=== PATIENT | female | born 2000 | race Hispanic/Latino ===

== ENCOUNTER 2024-03-19 23:57 | Emergency (ER) | payer SELFPAY ==
[2024-03-20 00:54] LABS: Absolute Basophils 0.1 K/uL (0-0.5); Absolute Eosinophils 0.2 K/uL (0-0.5); Absolute Lymphocytes (CBC) 4.5 K/uL (0.7-4.9); Absolute Monocytes 0.5 K/uL (0.1-1.3); Absolute Neutrophil 7.7 K/uL (1.8-8.0); Eosinophils % 1.3 % (0-4.4); Hematocrit 42.7 % (36.0-45.0); Hemoglobin 13.8 g/dL (12.0-15.0); Lymphocytes % 34.7 % (15.3-44.8); MCH 25.6 pg (27.0-35.0); MCHC 32.4 g/dL (32.0-36.0); MCV 79.1 fL (80-100); MPV 8.9 fL (7.6-11.3); Nucleated Red Blood Cells % 0.1 % (0-0); Platelets 477 thou/uL (152-406); RBC Red Blood Cell Count 5.41 M/uL (3.86-4.86); Red Cell Distribution Width 15.4 % (12.1-15.2)
[2024-03-20 00:59] LABS: Specific Gravity > 1.030 (1.005-1.030); Sqamous Epithelial <5 /HPF (None Seen); Urine Bacteria None Seen /HPF (<20); Urine Bilirubin NEGATIVE (Negative); Urine Blood 3+ (OVER) (Negative); Urine Clarity Clear (Clear); Urine Color Light-Yellow (Yellow); Urine Culture Reflex Order NOT NEEDED; Urine Glucose 4+ (Over) (Negative); Urine Ketones NEGATIVE (Negative); Urine Microscopic Reflex YN ORDER UMIC; Urine Mucus Slight /HPF (None Seen); Urine Nitrite NEGATIVE (Negative); Urine Protein TRACE (Negative); Urine RBC >50 /HPF (None Seen); Urine Urobilinogen Normal (Normal); Urine WBC <5 /HPF (<5); Urine pH 5.5 (5.0-7.0)
[2024-03-20 01:00] LABS: Specific Gravity > 1.030 (1.005-1.030)
[2024-03-20 01:25] LABS: Anion Gap 11.6 mEq/L (5.0-15.0); Potassium 3.6 mEq/L (3.5-5.1)
--- NOTE | 2024-03-20 02:47 | EDPHYS ---
Physician Documentation [facility] Name: Zeenat Foster Age: 24 yrs Sex: Female : 2000 Arrival Date: 03/19/2024 Time: 23:57 Bed 17 Private MD: ED Physician Tomas Anne HPI: 03/20 00:23 This 24 yrs old Female presents to ER via Ambulatory with complaints of rn Vaginal Bleeding, + Preg <12wks. 00:23 The patient presents to the emergency department with vaginal bleeding, that is light, rn with clots. The estimated gestational age is 8 weeks. course: care: none, Leakage of Fluid: none appreciated, Ultrasound: the patient had an ultrasound. Previous pregnancies: the patient has never been . The patient has been recently seen by a physician:. Patient reports approximately 7 to 8 weeks , had an ultrasound at about 6 weeks of that showed intrauterine but smaller at the time. Denies trauma. No urinary symptoms. No fever. Reports vaginal bleeding with clots yesterday, light today. Has not been using pads, just panty liner. No lightheadedness. No chest pain. No syncope. Does not take blood thinners. No known hematologic problems.. 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 - Infectious Disease History:: Denies. - Social history:: Smoking status: Patient denies any tobacco usage or history of. Patient/guardian denies using alcohol, street drugs. - Family history:: not pertinent. - Hospitalizations: : No recent hospitalization is reported. ROS: 00:23 Constitutional: Negative for fever, chills, and weight loss, Cardiovascular: Negative rn for chest pain, palpitations, and edema, Respiratory: Negative for shortness of breath, cough, wheezing, and pleuritic chest pain, Abdomen/GI: Positive for abdominal cramping : Positive for vaginal bleeding MS/Extremity: Negative for injury and deformity, Exam: 00:23 Constitutional: This is a well developed, well nourished patient who is awake, alert, rn and in no acute distress. Cardiovascular: Regular rate and rhythm. No pulse deficits. Respiratory: No increased work of breathing, no retractions or nasal flaring. Abdomen/GI: Soft, nontender, no peritoneal signs MS/ Extremity: Pulses equal, no cyanosis. Neuro: Awake and alert, GCS 15 Vital Signs: 00:10 BP 148 / 96; Pulse 88; Resp 17 S; Temp 98.4(O); Pulse Ox 100% on R/A; Weight 90.72 kg lg3 (R); Height 5 ft. 7 in. (R); 03:02 BP 127 / 74; Pulse 82; Resp 16; Pulse Ox 96% on R/A; jb4 00:10 Body Mass Index 31.32 (90.72 kg, 170.18 cm) lg3 MDM: 00:01 Patient medically screened. rn 02:45 Differential diagnosis: threatened Ab, ectopic . Data reviewed: vital signs, rn nurses notes, lab test result(s), radiologic studies, ultrasound, and as a result, I will discharge patient. Counseling: I had a detailed discussion with the patient and/or guardian regarding the historical points, exam findings, and any diagnostic results supporting the discharge/admit diagnosis, lab results, radiology results, the need for outpatient follow up, to return to the emergency department if symptoms worsen or persist or if there are any questions or concerns that arise at home. Special discussion: I discussed with the patient/guardian in detail that at this point there is no indication for admission to the hospital. It is understood, however, that if the symptoms persist or worsen the patient needs to return immediately for re-evaluation. ED course: Ultrasound does not show cardiac activity. Low-lying gestational sac. This could and is miscarriage and conveyed this information to the patient. Has ultrasound appointment on Thursday and OB appointment on Thursday, will give printout of all results so can be repeated accordingly. Return precautions given and understood. Stable vital signs.. 03/20 00:20 Order name: Abo/rh Typing; Complete Time: rn 03/20 00:20 Order name: Basic Metabolic Panel; Complete Time: rn 03/20 00:20 Order name: CBC with Diff; Complete Time: rn 03/20 00:20 Order name: Test, Urine; Complete Time: : rn 03/20 00:20 Order name: Quantitative Hcg; Complete Time: rn 03/20 00:20 Order name: Urinalysis w/ reflexes; Complete Time: : rn 03/20 00:20 Order name: US Transvaginal Ob rn 03/20 00:20 Order name: IV Saline Lock; Complete Time: : rn 03/20 00:20 Order name: Labs collected and sent; Complete Time: rn 03/20 00:20 Order name: NPO; Complete Time: : rn Administered Medications: No medications were administered Disposition Summary: 03/20/24 02:47 Discharge Ordered Notes: Location: Home rn Problem: new rn Symptoms: have improved rn Condition: Stable rn Diagnosis - Threatened rn - Abnormal uterine and vaginal bleeding, unspecified rn Followup: rn - With: Private Physician - When: 2 - 3 days - Reason: Recheck today's complaints, Re-evaluation by your physician Discharge Instructions: - Discharge Summary Sheet rn - Threatened Miscarriage rn - Vaginal Bleeding During , First Trimester rn Forms: - Medication Reconciliation Form rn - Antibiotic harness mender - Prescription Opioid Use rn - Patient Portal Instructions rn - Leadership Thank You Letter rn Signatures: Dispatcher [employer] Tomas Schmid MD MD rn Able, Lacie, RN RN lg3
--- NOTE | 2024-03-20 02:47 | ER ---
Nurse's Notes [facility] Name: Zeenat Foster Age: 24 yrs Sex: Female : 2000 Arrival Date: 03/19/2024 Time: 23:57 Bed 17 Private MD: Diagnosis: Threatened ;Abnormal uterine and vaginal bleeding, unspecified Presentation: 03/20 00:10 Chief complaint: Patient states: vaginal bleeding beginning Thursday with abdominal lg3 cramping. first OB scheduled for next Thursday. Coronavirus screen: Client denies travel out of the [place] in the last 14 days. At this time, the client does not indicate any symptoms associated with coronavirus-19. Ebola Screen: No symptoms or risks identified at this time. Initial Sepsis Screen: Does the patient meet any 2 criteria? No. Patient's initial sepsis screen is negative. Does the patient have a suspected source of infection? No. Patient's initial sepsis screen is negative. Risk Assessment: Do you want to hurt yourself or someone else? Patient reports no desire to harm self or others. Onset of symptoms was March 18, 2024. 00:10 Method Of Arrival: Ambulatory lg3 00:10 Acuity: EDITA 3 lg3 Triage Assessment: 00:12 General: Appears in no apparent distress. comfortable, Behavior is calm, cooperative. lg3 Pain: Complains of pain in pelvis. EENT: No deficits noted. No signs and/or symptoms were reported regarding the EENT system. Neuro: No deficits noted. [place] Agitation-Sedation Scale (RASS): 0 - Alert and Calm Level of Consciousness is awake, alert, obeys commands, Oriented to person, place, time, situation. Cardiovascular: No deficits noted. Denies chest pain, shortness of breath, Capillary refill < 3 seconds Clubbing of nail beds is absent JVD is absent Patient's skin is warm and dry. Respiratory: No deficits noted. Airway is patent Respiratory effort is even, unlabored, Respiratory pattern is regular, symmetrical. GI: Abdomen is round non-distended, Reports lower abdominal pain, cramping. : Reports cramping. Derm: No deficits noted. No signs and/or symptoms reported regarding the dermatologic system. Skin is intact, is healthy with good turgor, Skin is dry, Skin is normal, Skin temperature is warm. Musculoskeletal: No deficits noted. No signs and/or symptoms reported regarding the musculoskeletal system. Circulation, motion, and sensation intact. Range of motion: intact in all extremities. 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 - Infectious Disease History:: Denies. - Social history:: Smoking status: Patient denies any tobacco usage or history of. Patient/guardian denies using alcohol, street drugs. - Family history:: not pertinent. - Hospitalizations: : No recent hospitalization is reported. Screenin:00 [facility] ED Fall Risk Assessment (Adult) History of falling in the last 3 months, jb4 including since admission No falls in past 3 months (0 pts) Confusion or Disorientation No (0 pts) Intoxicated or Sedated No (0 pts) Impaired Gait No (0 pts) Mobility Assist Device Used No (0 pt) Altered Elimination No (0 pt) Score/Fall Risk Level 0 - 2 = Low Risk Oriented to surroundings, Maintained a safe environment. Abuse screen: Denies threats or abuse. Nutritional screening: No deficits noted. Tuberculosis screening: No symptoms or risk factors identified. Assessment: 01:00 Reassessment: Patient appears in no apparent distress at this time. Patient and/or jb4 family updated on plan of care and expected duration. Pain level reassessed. Patient is alert, oriented x 3, equal unlabored respirations, skin warm/dry/pink. 02:43 Reassessment: Patient appears in no apparent distress at this time. Patient and/or jb4 family updated on plan of care and expected duration. Pain level reassessed. Patient is alert, oriented x 3, equal unlabored respirations, skin warm/dry/pink. Vital Signs: 00:10 BP 148 / 96; Pulse 88; Resp 17 S; Temp 98.4(O); Pulse Ox 100% on R/A; Weight 90.72 kg lg3 (R); Height 5 ft. 7 in. (R); 03:02 BP 127 / 74; Pulse 82; Resp 16; Pulse Ox 96% on R/A; jb4 00:10 Body Mass Index 31.32 (90.72 kg, 170.18 cm) lg3 ED Course: 03/19 23:59 Patient arrived in ED. jj6 03/20 00:01 Tomas Anne MD is Attending Physician. rn 00:12 Triage completed. lg3 00:12 Arm band placed on right wrist. lg3 00:30 Initial lab(s) drawn, by me, sent to lab. Inserted saline lock: 20 gauge in right jb4 forearm, using aseptic technique. Blood collected. 01:00 Patient has correct armband on for positive identification. Placed in gown. Bed in low jb4 position. Call light in reach. Side rails up X 1. Provided Education on: plan of care.. 01:18 Transvaginal Ob In Process Unspecified. EDMS 03:01 No provider procedures requiring assistance completed. IV discontinued, intact, jb4 bleeding controlled, No redness/swelling at site. Pressure dressing applied. Administered Medications: No medications were administered Medication: 01:00 VIS not applicable for this client. jb4 Outcome: 02:47 Discharge ordered by MD. rn 03:03 Discharged to home ambulatory, jb4 03:03 Condition: stable 03:03 Discharge instructions given to patient, Instructed on discharge instructions, follow up and referral plans. Demonstrated understanding of instructions, follow-up care, 03:03 Patient left the ED. jb4 Signatures: Dispatcher [employer] EDMS Tomas Anne MD MD rn Bryson, James RN HUMBERTO jb4 Winter Mariano RN RN lg3 Vaishali Christopher jj6
[2024-03-20 03:09] VITALS: TEMP 98.4
[2024-03-20 03:19] VITALS: BP 127/74; O2SAT 96
--- NOTE | 2024-03-21 14:49 | RAD REPORT ---
EXAM DESCRIPTION: US , Transvaginal CLINICAL HISTORY: The patient is 24 years old and is Female; vaginal bleeding approx 7-8 weeks preg TECHNIQUE: Real-time transvaginal obstetrical ultrasound of the maternal pelvis and a first trimeste r with image documentation. Transvaginal imaging was used for better evaluation of the fe tus and adnexa. COMPARISON: No relevant prior studies available. FINDINGS: GESTATION: A single intrauterine gestational sac and yolk sac are present. A pole with a crown-rump length of 0.5 cm correlating to 6 weeks 1 day is present. No heart tones are detected. The gestational sac is low-lying within the endometrial canal. PLACENTA/AMNIOTIC FLUID: Cannot be adequately evaluated due to the early gestational age. UTERUS/CERVIX: Unremarkable. No myometrial mass. OVARIES: Unremarkable. No mass. FREE FLUID: No free fluid. IMPRESSION: Single intrauterine at 6 weeks 1 day. No heart tones are detected. The g estational sac is low-lying within the endometrial canal. While findings may be secondary to a very e mike intrauterine , a failed first trimester is within the differential. Recommend close continued follow-up with serial hCG and ultrasound. Electronically signed by: Caitie Sandoval MD 03/20/2024 01:30 AM CDT Due to temporary technical issues with the PACS/Fluency reporting system, reports are being signed by the in house radiologists without review as a courtesy to insure prompt reporting. The interpreting radiologist is fully responsible for the content of the report.
== END 2024-03-20 03:03 | disposition home or self-care (01) ==
LOC: ER 23:57
DX: O20.0 Threatened abortion (principal); Z3A.01 Less than 8 weeks gestation of pregnancy
CPT/HCPCS: 36415; 76817; 80048; 81001; 81025; 84702; 85025; 86900; 86901; 99283

== ENCOUNTER 2024-03-21 00:06 | Emergency (ER) | payer SELFPAY ==
--- NOTE | 2024-03-21 01:26 | ER ---
Nurse's Notes [facility] Name: Zeenat Foster Age: 24 yrs Sex: Female : 2000 Arrival Date: 03/21/2024 Time: 00:06 Bed 18 Private MD: Diagnosis: Miscarriage Presentation: 03/21 00:14 Chief complaint: Patient states: I think I am having a miscarriage. I was in the 4 restroom and passed 3 medium sized clots and now I am having heavy bleeding and lower abdominal pain. Coronavirus screen: At this time, the client does not indicate any symptoms associated with coronavirus-19. Ebola Screen: No symptoms or risks identified at this time. Initial Sepsis Screen: Does the patient meet any 2 criteria? No. Patient's initial sepsis screen is negative. Does the patient have a suspected source of infection? No. Patient's initial sepsis screen is negative. Risk Assessment: Do you want to hurt yourself or someone else? Patient reports no desire to harm self or others. Onset of symptoms was March 21, 2024. Transition of care: patient was not received from another setting of care. 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 - Infectious Disease History:: Denies. - Social history:: Smoking status: Patient denies any tobacco usage or history of. Screenin:19 [facility] ED Fall Risk Assessment (Adult) History of falling in the last 3 months, bm8 including since admission No falls in past 3 months (0 pts) Confusion or Disorientation No (0 pts) Intoxicated or Sedated No (0 pts) Impaired Gait No (0 pts) Mobility Assist Device Used No (0 pt) Altered Elimination No (0 pt) Score/Fall Risk Level 0 - 2 = Low Risk Oriented to surroundings, Maintained a safe environment, Educated pt \T\ family on fall prevention, incl call for assistance when getting out of bed, Assessed \T\ reinforced patient's understanding of fall precautions, Hourly rounding (assess needs \T\ fall precautionary measures) done, Used ambulatory aids as needed (educated on \T\ assisted with), Used gait belt as appropriate. Abuse screen: Denies threats or abuse. Nutritional screening: No deficits noted. Tuberculosis screening: No symptoms or risk factors identified. Assessment: 00:19 Reassessment: Patient and/or family updated on plan of care and expected duration. Pain bm8 level reassessed. Patient is alert, oriented x 3, equal unlabored respirations, skin warm/dry/pink. General: Appears distressed, uncomfortable, Behavior is cooperative, crying. Pain: Complains of pain in suprapubic area Pain currently is 5 out of 10 on a pain scale. Neuro: No deficits noted. Level of Consciousness is awake, alert, obeys commands, Oriented to person, place, time, situation, Appropriate for age. Cardiovascular: Denies chest pain, Capillary refill < 3 seconds in bilateral fingers toes Patient's skin is warm and dry. Respiratory: Airway is patent Trachea midline Respiratory effort is even, unlabored, Respiratory pattern is regular, symmetrical. GI: No signs and/or symptoms were reported involving the gastrointestinal system. : no inspection done, pt reports increased vaginal bleeding since yesterday, passing clots. Reports vaginal bleeding that is bright red, heavy flow. EENT: No signs and/or symptoms were reported regarding the EENT system. Derm: No signs and/or symptoms reported regarding the dermatologic system. Musculoskeletal: No signs and/or symptoms reported regarding the musculoskeletal system. 01:22 Reassessment: Patient appears in no apparent distress at this time. No changes from bm8 previously documented assessment. Patient and/or family updated on plan of care and expected duration. Pain level reassessed. Patient is alert, oriented x 3, equal unlabored respirations, skin warm/dry/pink. Vital Signs: 00:14 Pulse 125; Resp 20; Temp 97.3(TE); Pulse Ox 99% on R/A; Weight 90.72 kg (R); Height 5 jb4 ft. 7 in. (R); Pain 6/10; 01:22 BP 148 / 89; Pulse 100; Resp 17; Temp 97.3; Pulse Ox 100% ; Pain 3/10; bm8 00:14 Body Mass Index 31.32 (90.72 kg, 170.18 cm) jb4 00:14 Pain Scale: Adult jb4 01:22 Pain Scale: Adult bm8 [place] Coma Score: 00:19 Eye Response: spontaneous(4). Motor Response: obeys commands(6). Verbal Response: bm8 oriented(5). Total: 15. 01:22 Eye Response: spontaneous(4). Motor Response: obeys commands(6). Verbal Response: bm8 oriented(5). Total: 15. ED Course: 00:07 Patient arrived in ED. ec2 00:07 Daquan Nowak MD is Attending Physician. ec2 00:19 Triage completed. jb4 00:19 Robbie Valencia, RN is Primary Nurse. bm8 00:19 Arm band placed on right wrist. jb4 00:19 Patient has correct armband on for positive identification. Bed in low position. Call bm8 light in reach. Side rails up X 1. Client placed on continuous cardiac and pulse oximetry monitoring. NIBP monitoring applied. Pulse ox on. NIBP on. Door closed. Noise minimized. Warm blanket given. Pillow given. Verbal reassurance given. 00:19 No provider procedures requiring assistance completed. Initial lab(s) drawn, by ks, jacinta sent to lab. Patient did not have IV access during this emergency room visit. 01:00 Transvaginal OB US In Process Unspecified. EDMS 01:22 Provided Education on: post er care. bm8 Administered Medications: No medications were administered Medication: 00:19 VIS not applicable for this client. bm8 Outcome: 01:26 Discharge ordered by . ec2 01:31 Discharged to home ambulatory, with family, bm8 01:31 Condition: stable 01:31 Discharge instructions given to patient, family, Instructed on discharge instructions, follow up and referral plans. safety practices, Demonstrated understanding of instructions, follow-up care, medications, 01:33 Patient left the ED. bm8 Signatures: Dispatcher [employer] EDMO Burton Tubbs, RN RN jb4 Daquan Nowak MD MD 2 Robbie Valencia, RN RN bm8
--- NOTE | 2024-03-21 01:27 | EDPHYS ---
Physician Documentation [facility] Name: Zeenat Foster Age: 24 yrs Sex: Female : 2000 Arrival Date: 03/21/2024 Time: 00:06 Bed 18 Private MD: ED Physician Daquan Nowak HPI: 03/21 00:19 This 24 yrs old Female presents to ER via Ambulatory with complaints of ec2 Vaginal Bleeding, EST 8 WKS GESTATION. 00:19 Patient arrives today for persistent vaginal bleeding. Was seen approximately 24 hours ec2 ago, concern for possible miscarriage with instruction to follow-up with OB and obtain repeat ultrasonography and hCG. States that she had some clotting tonight which is what prompted evaluation. No anemic symptoms. Patient is emotional and otherwise concerned about a miscarriage.. 00:21 External workup review performed by myself. Patient is O+, had hCG performed yesterday ec2 as well. This is patient's first . No known bleeding diathesis.. 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 - Infectious Disease History:: Denies. - Social history:: Smoking status: Patient denies any tobacco usage or history of. ROS: 00:19 Constitutional: as per hpi ec2 Exam: 00:19 Constitutional: GEN: NAD Head: atraumatic Eyes: EOMI Ears: External ears are ec2 normal. CV: regular rate LUNGS: no respiratory distress ABD: non-distended SKIN: no evidence of rashes MSK: no evidence of trauma Vital Signs: 00:14 Pulse 125; Resp 20; Temp 97.3(TE); Pulse Ox 99% on R/A; Weight 90.72 kg (R); Height 5 jb4 ft. 7 in. (R); Pain 6/10; 01:22 BP 148 / 89; Pulse 100; Resp 17; Temp 97.3; Pulse Ox 100% ; Pain 3/10; bm8 00:14 Body Mass Index 31.32 (90.72 kg, 170.18 cm) jb4 00:14 Pain Scale: Adult jb4 01:22 Pain Scale: Adult bm8 [place] Coma Score: 00:19 Eye Response: spontaneous(4). Motor Response: obeys commands(6). Verbal Response: bm8 oriented(5). Total: 15. 01:22 Eye Response: spontaneous(4). Motor Response: obeys commands(6). Verbal Response: bm8 oriented(5). Total: 15. MDM: 00:09 Patient medically screened. ec2 00:19 Data reviewed: vital signs. ED course: Patient arrives today for evaluation of vaginal ec2 bleeding in setting of . Examination remarkable for tearful individual is otherwise in no acute distress with slight tachycardia noted. Will obtain repeat ultrasound, repeat hCG. Differential occludes vaginal bleeding in , miscarriage. Patient had labs performed yesterday, O+ blood type. Reassuring blood counts. Patient without significant bleeding at this time however does continue to bleed and no anemic symptoms to indicate repeating CBC at this time. . 00:27 ED course: External workup shows ultrasound performed with at approximately 6 ec2 weeks, no heart tones detected, low-lying gestational sac . 01:25 ED course: I discussed case with radiology, concern for likely miscarriage, will ec2 discharge home have the patient continue to follow-up with OB. Return precautions given.. 03/21 00:09 Order name: HCG-Quantitative ec2 03/21 00:09 Order name: Transvaginal OB ec2 Administered Medications: No medications were administered Disposition Summary: 03/21/24 01:26 Discharge Ordered Notes: Location: Home ec2 Condition: Stable ec2 Diagnosis - Miscarriage ec2 Followup: ec2 - With: Private Physician - When: - Reason: Re-evaluation by your physician Discharge Instructions: - Discharge Summary Sheet ec2 - Miscarriage, Mvbm-by-Srhm ec2 Forms: - Medication Reconciliation Form ec2 - Antibiotic Education ec2 - Prescription Opioid Use ec2 - Patient Portal Instructions ec2 - Leadership Thank You Letter ec2 Signatures: Dispatcher [employer] Burton Cruz RN RN jb4 Daquan Nowak MD MD ec2 Corrections: (The following items were deleted from the chart) 00:22 00:21 External workup review performed by myself. Patient is O+, had hCG performed ec2 yesterday as well.. ec2 01:25 00:19 ED course: Patient arrives today for evaluation of vaginal bleeding in setting of ec2 . Examination remarkable for tearful individual is otherwise in no acute distress with slight tachycardia noted. Will obtain repeat ultrasound, repeat hCG. Differential occludes vaginal bleeding in , miscarriage. Patient had labs performed yesterday, O+ blood type. Reassuring blood counts. Patient without significant bleeding at this time and no anemic symptoms to indicate repeating CBC at this time. . ec2
[2024-03-21 01:38] VITALS: TEMP 97.3
[2024-03-21 01:40] VITALS: BP 148/89; O2SAT 100
--- NOTE | 2024-03-21 14:50 | RAD REPORT ---
EXAM DESCRIPTION: ADDENDUM #1 THIS REPORT CONTAINS FINDINGS THAT MAY BE CRITICAL TO PATIENT CARE: I communicated the above findings by telephone with Dr. Daquan Nowak on 03/21/2024 1:30 AM CDT who demonstrated understanding of the abo ve finding(s)/recommendation(s). Electronically signed by: Caitie Sandoval MD 03/21/2024 01:30 AM CDT End of Addendum EXAM DESCRIPTION: US , Transvaginal CLINICAL HISTORY: The patient is 24 years old and is Female; VAGINAL BLEEDING TECHNIQUE: Real-time transvaginal obstetrical ultrasound of the maternal pelvis and a first trimeste r with image documentation. Transvaginal imaging was used for better evaluation of the fe tus and adnexa. COMPARISON: Ultrasound March 20, 2024 at 0042 hours FINDINGS: GESTATION: The previously demonstrated intrauterine gestational sac is no longer present . UTERUS/CERVIX: The endometrium is thickened and heterogeneous. No myometrial mass. OVARIES: The right ovary is normal. The left ovary is not seen secondary to bowel gas. FREE FLUID: No free fluid. IMPRESSION: 1. Previously demonstrated intrauterine gestational sac is no longer present. Findings consistent with a failed first trimester . 2. Thickened heterogeneous endometrium. While findings may be secondary to blood products, retained products of conception is within the differential. Recommend close continued follow-up with serial h CG and ultrasound. Electronically signed by: Caitie Sandoval MD 03/21/2024 01:23 AM CDT Due to temporary technical issues with the PACS/Fluency reporting system, reports are being signed by the in house radiologists without review as a courtesy to insure prompt reporting. The interpreting radiologist is fully responsible for the content of the report.
== END 2024-03-21 01:33 | disposition home or self-care (01) ==
LOC: ER 00:06
DX: O03.9 Complete or unspecified spontaneous abortion without complication (principal)
CPT/HCPCS: 36415; 76817; 84702; 99283

== ENCOUNTER 2024-07-13 13:25 | Emergency (ER) | payer SELFPAY ==
[2024-07-13 14:10] LABS: Absolute Basophils 0.1 K/uL (0-0.5); Absolute Eosinophils 0.2 K/uL (0-0.5); Absolute Lymphocytes (CBC) 4.1 K/uL (0.7-4.9); Absolute Monocytes 0.3 K/uL (0.1-1.3); Absolute Neutrophil 5.7 K/uL (1.8-8.0); Eosinophils % 1.5 % (0-4.4); Hemoglobin 14.1 g/dL (12.0-15.0); Lymphocytes % 39.7 % (15.3-44.8); MCH 26.7 pg (27.0-35.0); MCHC 32.8 g/dL (32.0-36.0); MCV 81.5 fL (80-100); Monocytes % 3.3 % (3.3-12.3); Neutrophils % 54.5 % (41.7-73.7); Nucleated Red Blood Cells % 0.2 % (0-0); Platelets 411 thou/uL (152-406); RBC Red Blood Cell Count 5.28 M/uL (3.86-4.86); Red Cell Distribution Width 13.4 % (12.1-15.2); Specific Gravity > 1.030 (1.005-1.030)
[2024-07-13 14:13] LABS: Calcium Oxalate Crystals- Ur Few /HPF (None Seen); Specific Gravity > 1.030 (1.005-1.030); Sqamous Epithelial <5 /HPF (None Seen); Urine Bacteria None Seen /HPF (<20); Urine Bilirubin NEGATIVE (Negative); Urine Blood 3+ (OVER) (Negative); Urine Clarity Extremely Turbid (Clear); Urine Color Brown (Yellow); Urine Culture Reflex Order NOT NEEDED; Urine Glucose 4+ (Over) (Negative); Urine Ketones NEGATIVE (Negative); Urine Microscopic Reflex YN ORDER UMIC; Urine Mucus Slight /HPF (None Seen); Urine Nitrite NEGATIVE (Negative); Urine Protein 1+ (Negative); Urine RBC >50 /HPF (None Seen); Urine Urobilinogen Normal (Normal); Urine WBC <5 /HPF (<5)
[2024-07-13 14:29] LABS: Anion Gap 13.9 mEq/L (5.0-15.0); BUN Blood Urea Nitrogen 9 mg/dL (7-18); Bicarbonate 19 mEq/L (21-32); Glomerular Filtration Rate 115 ml/min (=/>90); HCG, Quantitative < 1 mIU/mL (1-3); Potassium 3.9 mEq/L (3.5-5.1); Sodium Level 132 mEq/L (136-145)
[2024-07-13 14:30] LABS: Glucose Level 453 mg/dL (74-106)
--- NOTE | 2024-07-13 14:30 | RAD REPORT ---
EXAMINATION: Transvaginal OB COMPARISON: None. HISTORY: ABD PAIN TECHNIQUE: Real-time ultrasound was performed through the pelvis. A transvaginal scan was performed t o better visualize the intrauterine contents and adnexa. FINDINGS: The uterus is normal sized. Endometrium appears thickened to 11 mm. No IUP. Both ovaries are normal i n size, shape and echotexture with normal blood flow. No pelvic ascites. IMPRESSION: Thickened endometrial stripe measuring 11 mm without IUP seen. This may still represent early pregnan cy. In the setting of a positive hCG level, this would indicate of unknown location. Serial hCG level measurements and follow-up pelvic sonography in 7-10 days would be recommended.
[2024-07-13] MEDS ORDERED: NA CHLORIDE 0.9% 1,000 ML ONE (14:45)
[2024-07-13] MEDS ORDERED: INSULIN REGULAR (HUMAN) 100 UNIT/ML ONE (15:00)
--- NOTE | 2024-07-13 16:33 | ER ---
Nurse's Notes [facility] Name: Zeenat Foster Age: 24 yrs Sex: Female : 2000 Arrival Date: 07/13/2024 Time: 13:25 Bed 18 Private MD: Diagnosis: Hyperglycemia, unspecified;Abnormal uterine and vaginal bleeding, unspecified Presentation: 07/13 13:37 Chief complaint: Patient states: Positive test two days ago. Started spotting ll1 today. G2, P0 LMP:05/31/24. Coronavirus screen: Client denies travel out of the [place] in the last 14 days. At this time, the client does not indicate any symptoms associated with coronavirus-19. Ebola Screen: Patient denies travel to an Ebola-affected area in the 21 days before illness onset. Initial Sepsis Screen: Does the patient meet any 2 criteria? No. Patient's initial sepsis screen is negative. Does the patient have a suspected source of infection? No. Patient's initial sepsis screen is negative. Risk Assessment: Do you want to hurt yourself or someone else? Patient reports no desire to harm self or others. Onset of symptoms was July 13, 2024. 13:37 Method Of Arrival: Ambulatory ll1 13:37 Acuity: EDITA 3 ll1 Triage Assessment: 13:38 General: Appears uncomfortable, Behavior is calm, cooperative, appropriate for age. ll1 Pain: Denies pain. : Reports cramping, vaginal bleeding that is spotty. Historical: - Allergies: 13:37 No Known Allergies; ll1 - Home Meds: 13:37 None [Active]; ll1 - PMHx: 13:37 None; ll1 - PSHx: 13:37 None; ll1 - Immunization history:: Adult Immunizations up to date. - Infectious Disease History:: Denies. - Social history:: Smoking status: Patient denies any tobacco usage or history of. Screenin:30 [facility] ED Fall Risk Assessment (Adult) History of falling in the last 3 months, bp including since admission No falls in past 3 months (0 pts) Confusion or Disorientation No (0 pts) Intoxicated or Sedated No (0 pts) Impaired Gait No (0 pts) Mobility Assist Device Used No (0 pt) Altered Elimination No (0 pt) Score/Fall Risk Level 0 - 2 = Low Risk Oriented to surroundings. Abuse screen: Denies threats or abuse. Denies injuries from another. Nutritional screening: No deficits noted. Tuberculosis screening: No symptoms or risk factors identified. Assessment: 13:45 General: Appears in no apparent distress. obese, Behavior is calm, cooperative, bp appropriate for age. 15:30 Obstetrical Assessment: General assessment: awake and alert, skin warm and dry, bp respirations even and unlabored. Reassessment: Patient appears in no apparent distress at this time. Patient is alert, oriented x 3, equal unlabored respirations, skin warm/dry/pink. 16:30 Reassessment: Patient states symptoms have improved. bp Vital Signs: 13:37 BP 164 / 99; Pulse 94; Resp 17; Temp 97.2; Pulse Ox 99% on R/A; Weight 102.97 kg; ll1 Height 5 ft. 7 in. ; Pain 0/10; 16:40 BP 147 / 81; Pulse 81; Resp 17; Pulse Ox 100% ; bp 13:37 Body Mass Index 35.55 (102.97 kg, 170.18 cm) ll1 13:37 Pain Scale: Adult ll1 ED Course: 13:28 Patient arrived in ED. im 13:29 Sheridan Cline FNP-C is [facility]. kb 13:29 Daquan Nowak MD is Attending Physician. kb 13:34 Maxim Nelson, HUMBERTO is Primary Nurse. bp 13:34 Arm band placed on Patient placed in an exam room, on a stretcher. bp 13:38 Triage completed. ll1 13:56 Initial lab(s) drawn, by ga, sent to lab. Urine collected: clean catch specimen, blood bp tinged. Inserted saline lock: 20 gauge in right forearm, using aseptic technique. Blood collected. Flushed with 10 mL NS. 14:11 US Transvaginal Ob In Process Unspecified. EDMS 16:30 Patient has correct armband on for positive identification. bp 16:30 No provider procedures requiring assistance completed. IV discontinued, intact, bp bleeding controlled, No redness/swelling at site. Pressure dressing applied. Administered Medications: 15:00 Drug: NS 0.9% IV 1000 ml IV at 1000 ml once; to be given as a bolus over 60 minutes bp Route: IV; Rate: 1000 ml; Site: right forearm; 16:35 Follow up: IV Status: Completed infusion bp 15:00 Drug: Insulin Regular Human IVP 5 units IVP once {Co-Signature: darcy (Mich Enriquez RN).} bp Route: IVP; Site: right forearm; 16:35 Follow up: Response: No adverse reaction bp Medication: 16:30 VIS not applicable for this client. bp Outcome: 16:30 Discharged to home ambulatory, bp 16:30 Condition: stable 16:30 Discharge instructions given to patient, Instructed on discharge instructions, follow up and referral plans. medication usage, Demonstrated understanding of instructions, follow-up care, medications, Prescriptions given X 1, 16:33 Discharge ordered by MD. kb 16:43 Patient left the ED. bp Signatures: Dispatcher [employer] EDMS Sheridan Cline, [employer] BAY-Maxim Torres, RN RN bp Madison Munoz RN RN ll1 Sarah Thomason Jahala RN [id number]
--- NOTE | 2024-07-13 16:33 | EDPHYS ---
Physician Documentation [facility] Name: Zeenat Foster Age: 24 yrs Sex: Female : 2000 Arrival Date: 07/13/2024 Time: 13:25 Bed 18 Private MD: ED Physician Daquan Nowak HPI: 07/13 13:34 This 24 yrs old Female presents to ER via Unassigned with complaints of kb Vaginal Bleeding, + Preg <12wks. 13:34 Pt is a 24 year old female who presents with spotting that started today. States she kb found out she was 2 days ago. States she only sees blood when she wipes, not on underwear. Denies any pain. A1. LMP 05/31/24. Reports miscarriage in March 2024. . Historical: - Allergies: 13:37 No Known Allergies; ll1 - Home Meds: 13:37 None [Active]; ll1 - PMHx: 13:37 None; ll1 - PSHx: 13:37 None; ll1 - Immunization history:: Adult Immunizations up to date. - Infectious Disease History:: Denies. - Social history:: Smoking status: Patient denies any tobacco usage or history of. ROS: 13:34 Constitutional: As per HPI kb Exam: 13:34 Constitutional: This is a well developed, well nourished patient who is awake, alert, kb and in no acute distress. Head/Face: Normocephalic, atraumatic. ENT: Moist Mucous membranes Cardiovascular: Regular rate Respiratory: Respirations even and unlabored. No increased work of breathing. Talking in full sentences Abdomen/GI: Soft, non-tender. No distention Skin: Warm, dry with normal turgor. Normal color. MS/ Extremity: Pulses equal, no cyanosis. Neurovascular intact. Full, normal range of motion. Neuro: Awake and alert, GCS 15, oriented to person, place, time, and situation. Vital Signs: 13:37 BP 164 / 99; Pulse 94; Resp 17; Temp 97.2; Pulse Ox 99% on R/A; Weight 102.97 kg; ll1 Height 5 ft. 7 in. ; Pain 0/10; 16:40 BP 147 / 81; Pulse 81; Resp 17; Pulse Ox 100% ; bp 13:37 Body Mass Index 35.55 (102.97 kg, 170.18 cm) ll1 13:37 Pain Scale: Adult ll1 MDM: 13:29 Medical Screening Exam initiated kb 13:35 Differential diagnosis: threatened Ab, ectopic . Data reviewed: vital signs, kb nurses notes. 16:32 Counseling: I had a detailed discussion with the patient and/or guardian regarding the kb historical points, exam findings, and any diagnostic results supporting the discharge/admit diagnosis, lab results, radiology results, the need for outpatient follow up, a family practitioner, to return to the emergency department if symptoms worsen or persist or if there are any questions or concerns that arise at home. 07/13 13:29 Order name: Abo/rh Typing; Complete Time: 14:30 kb 07/13 13:29 Order name: Basic Metabolic Panel; Complete Time: 14:31 kb 07/13 13:29 Order name: CBC with Diff; Complete Time: 14:28 kb 07/13 13:29 Order name: Test, Urine; Complete Time: 14:28 kb 07/13 13:29 Order name: Quantitative Hcg; Complete Time: 14:31 kb 07/13 13:29 Order name: Urinalysis w/ reflexes; Complete Time: 14:28 kb 07/13 16:38 Order name: Glucose, Ancillary Testing EDMS 07/13 13:29 Order name: US Transvaginal Ob; Complete Time: 14:30 kb 07/13 13:29 Order name: IV Saline Lock; Complete Time: 13:55 kb 07/13 13:29 Order name: Labs collected and sent; Complete Time: 13:55 kb 07/13 13:29 Order name: NPO; Complete Time: 13:56 kb 07/13 15:33 Order name: Blood Glucose Level; Complete Time: 16:35 kb Administered Medications: 15:00 Drug: NS 0.9% IV 1000 ml IV at 1000 ml once; to be given as a bolus over 60 minutes bp Route: IV; Rate: 1000 ml; Site: right forearm; 16:35 Follow up: IV Status: Completed infusion bp 15:00 Drug: Insulin Regular Human IVP 5 units IVP once {Co-Signature: [email or web address] (Mich Enriquez RN).} bp Route: IVP; Site: right forearm; 16:35 Follow up: Response: No adverse reaction bp Disposition Summary: 07/13/24 16:33 Discharge Ordered Notes: Location: Home kb Condition: Stable kb Diagnosis - Hyperglycemia, unspecified kb - Abnormal uterine and vaginal bleeding, unspecified kb Followup: kb - With: Emergency Department - When: As needed - Reason: Worsening of condition Followup: kb - With: Private Physician - When: 2 - 3 days - Reason: Recheck today's complaints, Continuance of care, Re-evaluation by your physician Discharge Instructions: - Discharge Summary Sheet kb - Hyperglycemia, [id number] kb - Abnormal Uterine Bleeding, [id number] kb - Type 2 Diabetes Mellitus, Diagnosis, Adult, [id number] kb Forms: - Medication Reconciliation Form kb - Antibiotic Education kb - Prescription Opioid Use kb - Patient Portal Instructions kb - Leadership Thank You Letter kb Prescriptions: - Metformin 500 mg Oral Tablet - take 1 tablet ORAL route once daily for 7 days Then take 1 tablet with morning kb meals AND evening meals; 21 tablet; Refills: 0, Product Selection Permitted Addendum: 07/18/2024 07:45 I was immediately available for consultation during this patient's visit. I did not e c2 personally see the patient or discuss the patient with the FAY. . Signatures: Dispatcher [employer] Sheridan Jameson, [employer] PERSONAL INSURANCE ADVISOR-Maxim Torres, RN RN bp Madison Munoz RN RN ll1 Daquan Nowak MD MD ec2 Mich Enriquez RN [email or web address] Corrections: (The following items were deleted from the chart) 07/13 13:29 13:29 Transvaginal Ob+US.MARIALUISA ordered. SARKISME MARIE
[2024-07-13 18:23] VITALS: TEMP 97.2
[2024-07-13 18:26] VITALS: BP 147/81; O2SAT 100
== END 2024-07-13 16:43 | disposition home or self-care (01) ==
LOC: ER 13:25
DX: N93.9 Abnormal uterine and vaginal bleeding, unspecified (principal); R73.9 Hyperglycemia, unspecified
CPT/HCPCS: 36415; 76817; 80048; 81001; 81025; 82947; 84702; 85025; 86900; 86901; 96361; 96374; 99284; J7030